=== PATIENT | male | born 1980 | race African-American/Black ===

== ENCOUNTER 2018-12-24 00:20 | Emergency (ER) | payer MEDICARE, MEDICAID ==
--- NOTE | 2018-12-24 00:40 | ED.PDOC ---
History of Present Illness - General Chief Complaint: Abdominal Pain Stated Complaint: abdominal pain Time Seen by Provider: 12/24/18 00:37 Information Source: patient Exam Limitations: no limitations - History of Present Illness Initial Comments: Te Burdick 38 y/o male came to ER with sharp left sided abdominal pain intermittent radiation to left flank for the last 4 days.Denies N/V/D,no dysuria,no hematuria,no constipation able to eat. Abdominal Pain Onset Location: other - left side abdomen Pain Radiation: other - see hpi Quality: moderate, intermittent, sharpness Timing/Duration: other - 4 days Improving Factors: nothing Worsening Factors: nothing Associated Symptoms: other - see hpi Review of Systems - Review of Systems Gastrointestinal/Abdominal: States: see HPI All other Systems: Reviewed and Negative, No Change from Baseline Past Medical History (General) - Patient Medical History Hx Seizures: No Hx Stroke: No Hx Dementia: No Hx Asthma: No Hx of COPD: No Hx Cardiac Disorders: No Hx Congestive Heart Failure: No Hx Pacemaker: No Hx Hypertension: Yes Hx Thyroid Disease: No Hx Diabetes: No Hx Gastroesophageal Reflux: No Hx Renal Disease: No Hx Cancer: No Hx of HIV: No Hx Hepatitis C: No Hx MRSA: No Surgical History: other - right arthroscopy knee - Vaccination History Hx Tetanus, Diphtheria Vaccination: No Hx Influenza Vaccination: No Hx Pneumococcal Vaccination: No - Social History Hx Tobacco Use: Yes Hx Chewing Tobacco Use: No Hx Alcohol Use: No Hx Substance Use: No Hx Substance Use Treatment: No Hx Depression: No Hx Physical Abuse: No Hx Emotional Abuse: No Hx Suspected Abuse: No - Female History Patient : No Family Medical History - Family History Mother Living Status: Still Living Hx Family Asthma: No Hx Family Congestive Heart Failure: No Hx Family Hypertension: Yes Hx Family Stroke: No Hx Cardiac Disease: No Hx Family Diabetes: No Hx Family Cancer: No Hx Family;Other: suicide disease (per Pt)- tumor in head Father Family History: Unknown Living Status: Unknown Physical Exam - Physical Exam General Appearance: Alert, Comfortable, No apparent distress Eyes, Ears, Nose, Throat Exam: normal ENT inspection, TMs normal Neck: full range of motion, supple, normal inspection Respiratory: chest non-tender, lungs clear, normal breath sounds Cardiovascular/Chest: normal peripheral pulses, regular rate, rhythm, no murmur Peripheral Pulses: No deficit Gastrointestinal/Abdominal: soft, no organomegaly, tenderness - left side abdomen no peritoneal signs Back Exam: no CVA tenderness, no vertebral tenderness Extremity: no pedal edema, no calf tenderness Neurologic: alert, oriented x 3 Skin Exam: normal color, warm/dry Progress - Progress Progress: 12/24/18 03:02 12/24/18 00:43 IV Care:Saline Lock per Protoc QSHIFT 12/24/18 01:43 Hold Metformin x 48Hrs [id number] Laboratory Results - last 24 hr 12/24/18 12/24/18 12/24/18 00:43 00:43 00:51 WBC 5.4 RBC 4.97 Hgb 15.6 Hct 45.9 MCV 92.3 MCH 31.3 H MCHC 33.9 RDW 14.3 Plt Count 263 MPV 8.7 Absolute Neuts (auto) 2.20 Absolute Lymphs (auto) 2.40 Absolute Monos (auto) 0.70 Absolute Eos (auto) 0.10 Absolute Basos (auto) 0.10 Neutrophils % 39.8 L Lymphocytes % 43.3 Monocytes % 13.6 H Eosinophils % 2.2 Basophils % 1.1 PT 10.5 INR 1.05 PTT (SP) 25.2 Sodium 135 Potassium 3.5 L Chloride 102 Carbon Dioxide 23 Anion Gap 13.5 BUN 10 Creatinine 1.00 BUN/Creatinine Ratio 10.0 Random Glucose 104 Serum Osmolality 269.4 L Calcium 9.0 Magnesium 1.9 Total Bilirubin 0.6 Direct Bilirubin < 0.1 Indirect Bilirubin 0.5 AST 43 H ALT 51 Alkaline Phosphatase 54 Creatine Kinase 339 H* CK-MB (CK-2) 2.5 CK-MB (CK-2) % Not Reportable Troponin I < 0.02 Serum Total Protein 7.9 Albumin 4.1 Urine Color Yellow Urine Appearance Clear Urine pH 7.0 Ur Specific [place] 1.020 Urine Protein Trace Urine Glucose (UA) Negative Urine Ketones Trace Urine Blood Trace-intact H Urine Nitrite Negative Urine Bilirubin Small H Urine Urobilinogen 0.2 Ur Leukocyte Esterase Negative Urine RBC 1-3 Urine WBC 0 Ur Epithelial Cells 0 Urine Bacteria 0 Urine Opiates Screen Negative Urine Barbiturates Negative Ur Phencyclidine Scrn Negative U Amphetamin/Meth Scrn Negative U Benzodiazepines Scrn Negative U Cocaine Metab Screen Negative U Cannabinoids Screen Negative - Results/Orders Results/Orders: 12/24/18 00:43 IV Care:Saline Lock per Protoc QSHIFT 12/24/18 01:43 Hold Metformin x 48Hrs [id number] Laboratory Results - last 24 hr 12/24/18 12/24/18 12/24/18 00:43 00:43 00:51 WBC 5.4 RBC 4.97 Hgb 15.6 Hct 45.9 MCV 92.3 MCH 31.3 H MCHC 33.9 RDW 14.3 Plt Count 263 MPV 8.7 Absolute Neuts (auto) 2.20 Absolute Lymphs (auto) 2.40 Absolute Monos (auto) 0.70 Absolute Eos (auto) 0.10 Absolute Basos (auto) 0.10 Neutrophils % 39.8 L Lymphocytes % 43.3 Monocytes % 13.6 H Eosinophils % 2.2 Basophils % 1.1 PT 10.5 INR 1.05 PTT (SP) 25.2 Sodium 135 Potassium 3.5 L Chloride 102 Carbon Dioxide 23 Anion Gap 13.5 BUN 10 Creatinine 1.00 BUN/Creatinine Ratio 10.0 Random Glucose 104 Serum Osmolality 269.4 L Calcium 9.0 Magnesium 1.9 Total Bilirubin 0.6 Direct Bilirubin < 0.1 Indirect Bilirubin 0.5 AST 43 H ALT 51 Alkaline Phosphatase 54 Creatine Kinase 339 H* CK-MB (CK-2) 2.5 CK-MB (CK-2) % Not Reportable Troponin I < 0.02 Serum Total Protein 7.9 Albumin 4.1 Urine Color Yellow Urine Appearance Clear Urine pH 7.0 Ur Specific [place] 1.020 Urine Protein Trace Urine Glucose (UA) Negative Urine Ketones Trace Urine Blood Trace-intact H Urine Nitrite Negative Urine Bilirubin Small H Urine Urobilinogen 0.2 Ur Leukocyte Esterase Negative Urine RBC 1-3 Urine WBC 0 Ur Epithelial Cells 0 Urine Bacteria 0 Urine Opiates Screen Negative Urine Barbiturates Negative Ur Phencyclidine Scrn Negative U Amphetamin/Meth Scrn Negative U Benzodiazepines Scrn Negative U Cocaine Metab Screen Negative U Cannabinoids Screen Negative - EKG/XRAY/CT CT Ordered: Yes - abd/p-no acute findings noted Departure - Departure Clinical Impression: Abdominal pain Qualifiers: Abdominal location: lower abdomen, unspecified Qualified Code(s): R10.30 - Lower abdominal pain, unspecified Time of Disposition: 03:04 Disposition: Discharge to Home or Self Care Condition: Good Departure Forms: ED Discharge - Pt. Copy, Patient Portal Self Enrollment Instructions: DI for Abdominal Pain-Adult Diet: other - Avoid spicy and greasy foods Referrals: LETTY ALARCON [Primary Care Provider] - 1-2 Weeks Home Medications: Ambulatory Orders NK 12/24/18 Additional Instructions: Follow up with primary Md 24 December 2018 for recheck
[2018-12-24] MEDS ORDERED: LACTATED RINGERS 1,000 ML IVS ONE (00:43)
[2018-12-24] MEDS ORDERED: KETOROLAC TROMETHAMINE INJ 30 MG/ML VIAL IV ONE (00:43)
--- NOTE | 2018-12-24 02:18 | CT ---
CLINICAL HISTORY: pain left side abdomen COMPARISON: None. TECHNIQUE: CT ABDOMEN PELVIS WITH IV CONTRAST on 12/24/2018 1:42 AM CDT This exam was performed according to our departmental dose-optimization program, which includes automated exposure control, adjustment of the mA and/or kV according to patient size and/or use of iterative reconstruction technique. FINDINGS: Lower lungs are clear. Abdomen: The liver is normal in appearance. There is no biliary dilatation. Gallbladder is normal in appearance. Cholecystectomy was performed. The pancreas and spleen are normal in appearance. The adrenal glands and kidneys are unremarkable. Abdominal aorta is normal in course and caliber without aneurysm. There is no free air. There is no retroperitoneal adenopathy. Pelvis: There is no bowel obstruction. Urinary bladder is unremarkable. There is no free fluid. Skeleton: There are no acute osseous findings. No suspicious bony lesions. IMPRESSION: No acute inflammatory process. No renal or ureteral calculi. Electronically signed by: Master Calderon MD 12/24/2018 2:16 AM CDT
[2018-12-24 03:21] VITALS: BP 159/121; TEMP 97.2; O2SAT 99
== END 2018-12-24 03:15 | disposition home or self-care (01) ==
LOC: ER 00:20
DX: R10.32 Left lower quadrant pain (principal); I10 Essential (primary) hypertension; Z87.891 Personal history of nicotine dependence
CPT/HCPCS: 74177; 80048; 80076; 80307; 81001; 82550; 82553; 84484; 85025; 85610; 85730; J1885; J7120

== ENCOUNTER 2019-10-25 23:40 | Emergency (ER) | payer MEDICARE, MEDICAID ==
[2019-10-26] VITALS: TEMP 97.5
--- NOTE | 2019-10-26 00:41 | ED.PDOC ---
History of Present Illness - General Chief Complaint: Behavioral / Psych Stated Complaint: short of breath, chest pain Time Seen by Provider: 10/26/19 00:35 Source: patient, RN notes reviewed, Vital Signs reviewed, family - Exam Limitations: no limitations - History of Present Illness Initial Comments: Patient is a 39-year-old -[place] male who presents with complaints of shortness of breath and chest pain. This started approximately 3 hours prior to arrival. Patient was sitting on his couch with his watching TV and had acute onset of chest pain. It was stabbing in nature as well as pressure-like. The chest pain came on first and then the associated shortness of breath. Patient denies any nausea, vomiting. Patient denies any diaphoresis. The pain is nonradiating pain. The pain is moderate in intensity. Pain is worse with deep inspiration or movement. Nothing seems to make it much better except for rubbing his chest. Timing/Duration: 1-3 hours Severity/Quality: moderate, pressure, stabbing, tightness Location: substernal, central Chest Pain Radiation: no radiation Activities at Onset: none Prior Chest Pain/Cardiac Workup: no prior chest pain Improving Factors: other - Rubbing his chest. Worsening Factors: other - Deep inspiration or movement. Nitro Today/Relief: no nitro taken today Aspirin Treatment Today: no aspirin today Associated Symptoms: shortness of breath Allergies/Adverse Reactions: Allergies NO KNOWN ALLERGY Allergy (Verified 06/07/16 23:10) Home Medications: Ambulatory Orders NK 12/24/18 Review of Systems - Review of Systems Constitutional: States: no symptoms reported, see HPI. Denies: fever, malaise EENTM: States: no symptoms reported Respiratory: States: see HPI, short of breath Cardiology: States: see HPI, chest pain. Denies: palpitations, syncope Gastrointestinal/Abdominal: States: no symptoms reported. Denies: abdominal pain, diarrhea, nausea Genitourinary: States: no symptoms reported Musculoskeletal: States: no symptoms reported. Denies: back pain, neck pain Skin: States: no symptoms reported. Denies: change in color, rash Neurological: States: no symptoms reported. Denies: numbness, paresthesia, tingling, weakness Endocrine: States: no symptoms reported Hematologic/Lymphatic: States: no symptoms reported All other Systems: Reviewed and Negative, No Change from Baseline Past Medical History (General) - Patient Medical History Hx Seizures: No Hx Stroke: No Hx Dementia: No Hx Asthma: No Hx of COPD: No Hx Cardiac Disorders: No Hx Congestive Heart Failure: No Hx Pacemaker: No Hx Hypertension: Yes Hx Thyroid Disease: No Hx Diabetes: No Hx Gastroesophageal Reflux: No Hx Renal Disease: No Hx Cancer: No Hx of HIV: No Hx Hepatitis C: No Hx MRSA: No Surgical History: appendectomy, other - Vaccination History Hx Tetanus, Diphtheria Vaccination: No Hx Influenza Vaccination: No Hx Pneumococcal Vaccination: No - Social History Hx Tobacco Use: Yes Hx Chewing Tobacco Use: No Hx Alcohol Use: No Hx Substance Use: No Hx Substance Use Treatment: No Hx Depression: No Hx Physical Abuse: No Hx Emotional Abuse: No Hx Suspected Abuse: No - Female History Patient : No Family Medical History - Family History Mother Living Status: Still Living Hx Family Asthma: No Hx Family Congestive Heart Failure: No Hx Family Hypertension: Yes Hx Family Stroke: No Hx Cardiac Disease: No Hx Family Diabetes: No Hx Family Cancer: No Hx Family;Other: suicide disease (per Pt)- tumor in head Father Family History: Unknown Living Status: Unknown Physical Exam - Physical Exam General Appearance: Alert, Anxious, Well Developed, Well Groomed, Well Hydrated, Well Nourished Eyes, Ears, Nose, Throat Exam: PERRL/EOMI, normal ENT inspection, pharynx normal Neck: non-tender, full range of motion, supple, normal inspection Respiratory: chest non-tender, lungs clear, normal breath sounds, no respiratory distress, no accessory muscle use Cardiovascular/Chest: normal peripheral pulses, regular rate, rhythm, no edema, no gallop, no murmur Peripheral Pulses: radial,right: 2+, radial,left: 2+ Gastrointestinal/Abdominal: normal bowel sounds, non tender, soft Extremity: normal range of motion, non-tender, normal inspection, no pedal edema 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 11/13/19 01:06 This is a late entry. Patient evaluated for chest pain. Negative troponin x2. Chest pain resolved after IV benzodiazepines. Plan on discharge home with follow-up with PCP for referral to a home health care social worker for a stress test. I discussed the plan of care with the patient he voices understanding and agreement with the plan of care. Jose Burns M.D. #[id number] - Results/Orders Results/Orders: EXAM DESCRIPTION: Chest,1 View CLINICAL HISTORY:39 years Male, chest pain Comparison: Chest radiograph dated June 07, 2016 FINDINGS: No focal lung consolidation. No pleural effusion. No pneumothorax. Cardiomediastinal silhouette is within normal limits. No acute osseous abnormality. IMPRESSION: No acute cardiopulmonary disease. Electronically signed by: Rodrigo Morocho DO 10/26/2019 1:07 AM Laboratory Tests 10/26/19 10/26/19 10/26/19 00:35 02:00 02:00 WBC 3.4 L RBC 4.43 L Hgb 13.7 L Hct 40.5 L MCV 91.5 MCH 31.0 MCHC 33.8 RDW 13.5 Plt Count 224 MPV 8.1 Absolute Neuts (auto) 1.20 L Absolute Lymphs (auto) 1.50 Absolute Monos (auto) 0.50 Absolute Eos (auto) 0.10 Absolute Basos (auto) 0.10 Neutrophils % 34.7 L Lymphocytes % 45.2 Monocytes % 14.1 H Eosinophils % 4.2 Basophils % 1.8 PT 9.9 INR 1.00 PTT (SP) 23.2 D-Dimer, Quantitative 310 Sodium 139 Potassium 3.2 L Chloride 107 Carbon Dioxide 22 Anion Gap 13.2 BUN 10 Creatinine 1.03 BUN/Creatinine Ratio 9.7 L Random Glucose 117 H Serum Osmolality 277.6 Calcium 8.9 Magnesium 1.6 L Creatine Kinase 520 H* CK-MB (CK-2) 2.7 CK-MB (CK-2) % Not Reportable Troponin I < 0.02 < 0.02 B-Natriuretic Peptide 11.0 Please see medical record for EKG Departure - Departure Clinical Impression: Anxiety attack Chest pain Qualifiers: Chest pain type: unspecified Qualified Code(s): R07.9 - Chest pain, unspecified Disposition: Discharge to Home or Self Care Condition: Good Departure Forms: ED Discharge - Pt. Copy, Patient Portal Self Enrollment Instructions: DI for Chest Pain, DI for Psychosis Diet: resume usual diet Activity: walking as tolerated Referrals: LETTY ALARCON [Primary Care Provider] - 1-2 Days Home Medications: Ambulatory Orders NK 12/24/18
[2019-10-26] MEDS: ASPIRIN TABLET 325 MG TAB PO ONE (00:45)
[2019-10-26] MEDS: ONDANSETRON INJ 4 MG/2 ML VIAL IV ONE (01:00)
[2019-10-26] MEDS: SODIUM CHLORIDE 0.9% (FLUSH) 10 ML SYG IV PRN (01:01)
--- NOTE | 2019-10-26 01:09 | RAD ---
EXAM DESCRIPTION: Chest,1 View CLINICAL HISTORY:39 years Male, chest pain Comparison: Chest radiograph dated June 07, 2016 FINDINGS: No focal lung consolidation. No pleural effusion. No pneumothorax. Cardiomediastinal silhouette is within normal limits. No acute osseous abnormality. IMPRESSION: No acute cardiopulmonary disease. Electronically signed by: Rodrigo Morocho DO 10/26/2019 1:07 AM CDT
[2019-10-26] MEDS ORDERED: METOPROLOL TARTRATE INJ 5 MG/5 ML VIAL IV ONE (02:17)
[2019-10-26 05:20] VITALS: BP 149/106; O2SAT 95
== END 2019-10-26 02:58 | disposition home or self-care (01) ==
LOC: ER 23:40
DX: F41.0 Panic disorder [episodic paroxysmal anxiety] (principal); R07.9 Chest pain, unspecified; R06.02 Shortness of breath; I10 Essential (primary) hypertension; Z87.891 Personal history of nicotine dependence
CPT/HCPCS: 71045; 80048; 82550; 82553; 83880; 84484; 85025; 85379; 85610; 85730; 93005; J2405

== ENCOUNTER 2020-07-30 00:38 | Emergency (ER) | payer MEDICARE, MEDICAID ==
--- NOTE | 2020-07-30 00:58 | ED.PDOC ---
History of Present Illness - General Chief Complaint: Abdominal Pain Stated Complaint: abd pain Time Seen by Provider: 07/30/20 00:57 - History of Present Illness Initial Comments: Patient complains of epigastric pain for the last 3 days. The pain is intermittently sharp and dull and radiates through to the back. Current pain level 8/10. Patient complains of nausea without vomiting. He has had 4 black diarrheal stools in the last 24 hours. He has been taking Pepto-Bismol. Patient has had similar pains for months. He was recently hospitalized 3 weeks ago at [facility] in [place] with a diagnosis of pancreatitis. Patient is a daily drinker with last alcohol intake within the last 24 hours. Allergies/Adverse Reactions: Allergies NO KNOWN ALLERGY Allergy (Verified 06/07/16 23:10) Home Medications: Ambulatory Orders Famotidine [Pepcid] 20 mg PO BID 15 Days #30 tab 07/30/20 Ondansetron Odt [Zofran ODT] 4 mg PO Q6H PRN 3 Days #12 tab 07/30/20 Sucralfate Tab [Carafate Tab] 1 gm PO ACHS 7 Days #30 tablet 07/30/20 Review of Systems - Review of Systems Constitutional: States: no symptoms reported EENTM: States: no symptoms reported Respiratory: States: no symptoms reported Gastrointestinal/Abdominal: States: see HPI Genitourinary: States: no symptoms reported Musculoskeletal: States: no symptoms reported Skin: States: no symptoms reported Neurological: States: no symptoms reported Endocrine: States: no symptoms reported Hematologic/Lymphatic: States: no symptoms reported Past Medical History (General) - Patient Medical History Hx Seizures: No Hx Stroke: No Hx Dementia: No Hx Asthma: No Hx of COPD: No Hx Cardiac Disorders: No Hx Congestive Heart Failure: No Hx Pacemaker: No Hx Hypertension: Yes Hx Thyroid Disease: No Hx Diabetes: No Hx Gastroesophageal Reflux: No Hx Renal Disease: No Hx Cancer: No Hx of HIV: No Hx Hepatitis C: No Hx MRSA: No Hx Other - free text: Pancreatitis - Vaccination History Hx Tetanus, Diphtheria Vaccination: No Hx Influenza Vaccination: No Hx Pneumococcal Vaccination: No - Social History Hx Tobacco Use: Yes Hx Chewing Tobacco Use: No Hx Alcohol Use: No Hx Substance Use: No Hx Substance Use Treatment: No Hx Depression: No Hx Physical Abuse: No Hx Emotional Abuse: No Hx Suspected Abuse: No - Female History Patient : No Family Medical History - Family History Mother Living Status: Still Living Hx Family Asthma: No Hx Family Congestive Heart Failure: No Hx Family Hypertension: Yes Hx Family Stroke: No Hx Cardiac Disease: No Hx Family Diabetes: No Hx Family Cancer: No Hx Family;Other: suicide disease (per Pt)- tumor in head Father Family History: Unknown Living Status: Unknown Physical Exam - Physical Exam General Appearance: Alert, Comfortable Eye Exam: bilateral normal Ears, Nose, Throat: normal ENT inspection, normal pharynx, other - Moist mucous membranes Neck: non-tender, full range of motion Respiratory: normal breath sounds Cardiovascular/Chest: normal peripheral pulses, regular rate, rhythm Gastrointestinal/Abdominal: normal bowel sounds, soft, no organomegaly, tenderness - , Normal bowel sounds Rectal Exam: normal exam, normal rectal tone, black stool, other - Nurse Rhonda as it consultant present Back Exam: normal inspection, no CVA tenderness Extremity: normal range of motion 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 07/30/20 02:43 Medical decision makin-year-old male with history of alcohol abuse and pancreatitis who continues to drink alcohol and complains of epigastric pain. Exam and laboratory work is not suggestive of pancreatitis. Laboratory work is unremarkable and stool is heme positive. Findings are suggestive of gastritis and peptic ulcer disease. Patient is advised to discontinue alcohol intake and follow-up with his doctor for gastroenterology referral or further treatment as indicated. - Results/Orders Results/Orders: 07/30/20 01:09 Sodium Chloride 0.9% 1000ML [Ns 1000 ml] 1,000 ml IVS ONCE 07/30/20 01:10 FECAL OCCULT BLOOD Stat Laboratory Results - last 24 hr 07/30/20 07/30/20 01:20 01:20 WBC 5.4 RBC 4.69 L Hgb 14.4 Hct 42.3 MCV 90.3 MCH 30.7 MCHC 34.0 RDW 13.2 Plt Count 348 MPV 8.4 Absolute Neuts (auto) 2.50 Absolute Lymphs (auto) 2.00 Absolute Monos (auto) 0.70 Absolute Eos (auto) 0.20 Absolute Basos (auto) 0.10 Neutrophils % 46.6 Lymphocytes % 37.1 Monocytes % 12.2 H Eosinophils % 3.0 Basophils % 1.1 Sodium 140 Potassium 3.7 Chloride 104 Carbon Dioxide 21 Anion Gap 18.7 H BUN 11 Creatinine 1.08 BUN/Creatinine Ratio 10.2 Random Glucose 126 H Serum Osmolality 280.3 Calcium 9.0 Total Bilirubin 0.6 AST 33 ALT 27 Alkaline Phosphatase 64 Serum Total Protein 8.0 Albumin 4.2 Globulin 3.8 H Albumin/Globulin Ratio 1.1 Lipase 23 Vital Signs - 24 hr 07/30/20 00:54 Temperature 97.1 F L Pulse Rate [ 73 Left Radial] Respiratory 18 Rate Blood Pressure 138/90 [Left Arm] O2 Sat by Pulse 97 Oximetry Stool for occult blood positive Departure - Departure Clinical Impression: Abdominal pain, Alcoholic gastritis, Peptic ulcer disease, Melena Time of Disposition: 02:09 Disposition: Discharge to Home or Self Care Condition: Good Departure Forms: ED Discharge - Pt. Copy, Patient Portal Self Enrollment Instructions: DI for Abdominal Pain-Adult, Gastritis (DC), Peptic Ulcers (DC) Diet: bland diet, other - Do not drink alcohol. Avoid spicy, acidic, Salty foods. Referrals: LETTY ALARCON [Primary Care Provider] - 1-2 Weeks Prescriptions: Sucralfate Tab [Carafate Tab] 1 gm PO ACHS 7 Days #30 tablet Famotidine [Pepcid] 20 mg PO BID 15 Days #30 tab Ondansetron Odt [Zofran ODT] 4 mg PO Q6H PRN 3 Days #12 tab PRN Reason: Vomiting Home Medications: Ambulatory Orders Famotidine [Pepcid] 20 mg PO BID 15 Days #30 tab 07/30/20 Ondansetron Odt [Zofran ODT] 4 mg PO Q6H PRN 3 Days #12 tab 07/30/20 Sucralfate Tab [Carafate Tab] 1 gm PO ACHS 7 Days #30 tablet 07/30/20 Additional Instructions: See your doctor as soon as possible for further care of your gastritis and ulcer disease or referral to a human capital analyst. Return if you have Persistent andacutely worsening Symptoms.
[2020-07-30] MEDS ORDERED: ONDANSETRON INJ 4 MG/2 ML VIAL IV ONE (01:09)
[2020-07-30] MEDS ORDERED: FAMOTIDINE IV PREMIX 20 MG in PREMIX BAG 1 BAG IVPB ONE (01:09)
[2020-07-30] MEDS ORDERED: SODIUM CHLORIDE 0.9% 1000ML 1,000 ML IVS ONE (01:09)
[2020-07-30] MEDS ORDERED: ACETAMINOPHEN IV 1000MG 1,000 MG in PREMIX BOTTLE 1 BOTTLE IVPB ONE (01:10)
[2020-07-30 02:53] VITALS: O2SAT 98
[2020-07-30 02:55] VITALS: BP 128/86; TEMP 97.4
== END 2020-07-30 02:45 | disposition home or self-care (01) ==
LOC: ER 00:38
DX: K29.20 Alcoholic gastritis without bleeding (principal); K92.1 Melena; K27.9 Peptic ulcer, site unspecified, unspecified as acute or chronic, without hemorrhage or perforation; I10 Essential (primary) hypertension; Z87.891 Personal history of nicotine dependence
CPT/HCPCS: 80053; 82270; 83690; 85025; J2405; J3490; J7030

== ENCOUNTER 2020-08-12 10:50 | Emergency (ER) | payer MEDICARE, MEDICAID ==
[2020-08-12] MEDS ORDERED: PANTOPRAZOLE SODIUM IV 40 MG VIAL IV ONE (11:13)
[2020-08-12] MEDS ORDERED: SODIUM CHLORIDE 0.9% 1000ML 1,000 ML IVS ONE ×3 (11:13→14:30)
[2020-08-12] MEDS ORDERED: PROMETHAZINE HCL INJ 25 MG in SODIUM CHLORIDE 0.9% 50ML 50 ML IVPB ONE (11:13)
[2020-08-12] MEDS ORDERED: ALUM & MAG HYDROX-SIMETHICONE 30 ML, LIDOCAINE VISCOUS 2% 15 ML PO ONE ×2 (11:14)
[2020-08-12] MEDS ORDERED: SUCRALFATE 1 GM/10 ML 1 GM UD PO ONE (11:55)
--- NOTE | 2020-08-12 12:58 | CT ---
EXAM DESCRIPTION: Abdoment/Pelvis w/o Contrast: Computed Tomography. CLINICAL HISTORY: 39 years Male nausea and vomiting. COMPARISON: None. TECHNIQUE: Spiral-axial scans 2.5 x 2.5 mm intervals through the abdomen and pelvis without oral or IV contrast. Coronal and sagittal 2.0 mm reconstructions. Total Exam DLP: 912 mGy-cm. This exam was performed according to our departmental CT dose-optimization program which includes automated exposure control, adjustment of the mA and/or kV according to patient size and/or use of iterative reconstruction technique; to reduce radiation dose to as low as reasonably achievable (ALARA). FINDINGS: Lung bases and pleura: Negative. Liver, stomach, spleen, and adrenal glands: Fatty density of the liver. Otherwise unremarkable. Pancreas, Gallbladder, and Ducts: Minimal fatty stranding around the head and body of the pancreas. The organ is not enlarged with no calcifications. Kidneys and Ureters: Unremarkable. Mesentery: Please see above. No free air or free fluid. Aorta: Negative. Small Bowel: Radiodense material proximal small bowel but no oral contrast. No distended segments are significant air-fluid levels. Terminal Ileum/Cecum: Normal caliber of the terminal ileum with mildly distended cecum with fecal material and radiodense feces. Surgical clips abutting the inferior cecum. Appendix not seen. Colon: Single diverticulum containing calcification or radiodense fecal matter in the mid descending colon. Moderate redundancy of the sigmoid colon with anterior segment abutting the posterior left abdominal wall and distended by gas. Moderate distention of the rectum by fecal matter. Pelvic Organs: Prostate gland impressing on the base of the urinary bladder and the seminal vesicles. 3.7 x 3.7 cm greatest transverse plane. Spine and Bony Pelvis: Minimal narrowing of the L5-S1 disc space with trace retrolisthesis and disc bulging. Abdominal Wall/Back Soft Tissues: Negative. IMPRESSION: 1. Minimal mesenteric stranding around the head and body of the pancreas suggesting pancreatitis. No mass or fluid collection. Steatosis of the liver with normal size. 2. Mild diverticulosis distal colon and moderate redundancy of the sigmoid colon with constipation but no complications. Electronically signed by: Slim Graves MD 08/12/2020 12:56 PM [employer]
[2020-08-12] MEDS ORDERED: MAGNESIUM HYDROXIDE 30 ML UD PO ONE (13:52)
--- NOTE | 2020-08-12 14:35 | ED.PDOC ---
History of Present Illness - General Chief Complaint: Abdominal Pain Stated Complaint: Abdominal pain, N/D Time Seen by Provider: 08/12/20 11:12 Source: patient Exam Limitations: no limitations - History of Present Illness Initial Comments: The patient is a 39-year-old male presented emergency room secondary to nausea vomiting for the last 24 hours. He has had a history of chronic gastritis as well as some recurrent pancreatitis in the past. He does have significant alcohol use issue. No blood in the vomitus. No blood in the stool. He does have severe epigastric pain. No fever. No trauma. Timing/Duration: 24 hours Severity: severe Improving Factors: nothing Worsening Factors: eating Associated Symptoms: loss of appetite, nausea/vomiting Allergies/Adverse Reactions: Allergies NO KNOWN ALLERGY Allergy (Verified 08/12/20 12:08) Home Medications: Ambulatory Orders Famotidine [Pepcid] 20 mg PO BID 15 Days #30 tab 07/30/20 Ondansetron Odt [Zofran ODT] 4 mg PO Q6H PRN 3 Days #12 tab 07/30/20 Sucralfate Tab [Carafate Tab] 1 gm PO ACHS 7 Days #30 tablet 07/30/20 Famotidine 20 mg PO DAILY #30 tab 08/12/20 Ondansetron Odt [Zofran ODT] 4 mg PO Q8HR PRN #5 tab 08/12/20 Sucralfate Tab [Carafate Tab] 1 gm PO QID #120 tab 08/12/20 Review of Systems - Review of Systems Constitutional: States: malaise EENTM: States: no symptoms reported Respiratory: States: no symptoms reported Cardiology: States: no symptoms reported Gastrointestinal/Abdominal: States: abdominal pain, nausea, vomiting Genitourinary: States: no symptoms reported Musculoskeletal: States: no symptoms reported Skin: States: no symptoms reported Neurological: States: no symptoms reported Endocrine: States: no symptoms reported All other Systems: No Change from Baseline Past Medical History (General) - Patient Medical History Hx Seizures: No Hx Stroke: No Hx Dementia: No Hx Asthma: No Hx of COPD: No Hx Cardiac Disorders: No Hx Congestive Heart Failure: No Hx Pacemaker: No Hx Hypertension: Yes Hx Thyroid Disease: No Hx Diabetes: No Hx Gastroesophageal Reflux: No Hx Renal Disease: No Hx Cancer: No Hx of HIV: No Hx Hepatitis C: No Hx MRSA: No Surgical History: appendectomy, tonsillectomy - Vaccination History Hx Tetanus, Diphtheria Vaccination: No Hx Influenza Vaccination: No Hx Pneumococcal Vaccination: No - Social History Hx Tobacco Use: No Hx Chewing Tobacco Use: No Hx Alcohol Use: Yes Hx Substance Use: No Hx Substance Use Treatment: No Hx Depression: No Hx Physical Abuse: No Hx Emotional Abuse: No Hx Suspected Abuse: No - Female History Patient is a Female of Child Bearing Age (10 -59 yrs old): No Patient : No Family Medical History - Family History Mother Living Status: Still Living Hx Family Asthma: No Hx Family Congestive Heart Failure: No Hx Family Hypertension: Yes Hx Family Stroke: No Hx Cardiac Disease: No Hx Family Diabetes: No Hx Family Cancer: No Hx Family;Other: suicide disease (per Pt)- tumor in head Father Family History: Unknown Living Status: Unknown Physical Exam - Physical Exam General Appearance: Alert, Other - Obviously uncomfortable Eye Exam: bilateral normal Ears, Nose, Throat: hearing grossly normal, normal pharynx Neck: full range of motion, supple Respiratory: lungs clear, normal breath sounds, no respiratory distress, no accessory muscle use Cardiovascular/Chest: normal peripheral pulses, regular rate, rhythm, no edema Peripheral Pulses: radial,right: 2+, radial,left: 2+ Gastrointestinal/Abdominal: other - Epigastric tenderness to palpation. Rectal Exam: deferred Back Exam: no CVA tenderness, no vertebral tenderness Extremity: normal range of motion, non-tender, normal inspection, no pedal edema, normal capillary refill Neurologic: castings drafter II-XII nml as tested, alert, normal mood/affect, oriented x 3 Skin Exam: normal color Comments: Vital Signs - 24 hr 08/12/20 08/12/20 10:50 10:51 Temperature 97.8 F Pulse Rate [ 102 H 102 H Pulse ox] Respiratory 20 20 Rate Blood Pressure 136/99 [R arm] O2 Sat by Pulse 96 Oximetry Progress - Progress Progress: 08/12/20 14:35 The patient is a 39-year-old male presented emergency room with what appears to be acute alcoholic gastritis. He obviously needs to avoid the alcohol. He will be written for Carafate and famotidine for the next month. He also be written for Zofran for as needed use to control any nausea or vomiting. He needs to maintain a bland diet and keep himself well-hydrated. CT scan of the abdomen pelvis was fairly reassuring. Laboratory work showed no evidence of increased amylase or lipase. CT scan of the abdomen pelvis does not definitively show pancreatitis though it cannot definitely be ruled out. ER warnings are given. Follow-up with primary care doctor next week. marcy arenas - Results/Orders Results/Orders: CT scan abdomen pelvis shows constipation. No evidence of perforation. There is mild stranding around the head of the pancreas that could be consistent with an early pancreatitis. Chronic changes otherwise. EKG shows normal sinus rhythm at 88 bpm. Normal axis. Normal R wave progression. Mild left atrial dilation. No ST segment or T wave changes indicative of acute ischemia. Normal QT interval. Laboratory Tests 08/12/20 08/12/20 08/12/20 11:15 11:15 11:15 WBC 5.3 RBC 4.85 Hgb 14.9 Hct 43.3 MCV 89.4 MCH 30.7 MCHC 34.4 RDW 13.5 Plt Count 197 MPV 8.1 Absolute Neuts (auto) 2.70 Absolute Lymphs (auto) 1.90 Absolute Monos (auto) 0.60 Absolute Eos (auto) 0.00 Absolute Basos (auto) 0.00 Neutrophils % 51.3 Lymphocytes % 36.8 Monocytes % 10.7 H Eosinophils % 0.6 L Basophils % 0.6 PT 11.1 H INR 1.12 PTT (SP) 25.0 Sodium 141 Potassium 3.6 Chloride 103 Carbon Dioxide 24 Anion Gap 17.6 BUN 10 Creatinine 0.95 BUN/Creatinine Ratio 10.5 Random Glucose 115 H Serum Osmolality 281.2 Lactic Acid Calcium 8.6 Magnesium 1.9 Total Bilirubin 0.7 AST 49 H ALT 33 Alkaline Phosphatase 68 LD Total 185 H Creatine Kinase 542 H* CK-MB (CK-2) 2.7 CK-MB (CK-2) % Not Reportable Troponin I < 0.02 B-Natriuretic Peptide < 15.0 Serum Total Protein 8.4 H Albumin 4.6 Globulin 3.8 H Albumin/Globulin Ratio 1.2 Amylase 89 Lipase 36 Urine Color Urine Appearance Urine pH Ur Specific [place] Urine Protein Urine Glucose (UA) Urine Ketones Urine Blood Urine Nitrite Urine Bilirubin Urine Urobilinogen Ur Leukocyte Esterase Urine RBC Urine WBC Ur Epithelial Cells Urine Bacteria Urine Mucus Urine Opiates Screen Urine Barbiturates Ur Phencyclidine Scrn U Amphetamin/Meth Scrn U Benzodiazepines Scrn U Cocaine Metab Screen U Cannabinoids Screen 08/12/20 08/12/20 08/12/20 11:15 13:37 13:37 WBC RBC Hgb Hct MCV MCH MCHC RDW Plt Count MPV Absolute Neuts (auto) Absolute Lymphs (auto) Absolute Monos (auto) Absolute Eos (auto) Absolute Basos (auto) Neutrophils % Lymphocytes % Monocytes % Eosinophils % Basophils % PT INR PTT (SP) Sodium Potassium Chloride Carbon Dioxide Anion Gap BUN Creatinine BUN/Creatinine Ratio Random Glucose Serum Osmolality Lactic Acid 3.5 H* Calcium Magnesium Total Bilirubin AST ALT Alkaline Phosphatase LD Total Creatine Kinase CK-MB (CK-2) CK-MB (CK-2) % Troponin I B-Natriuretic Peptide Serum Total Protein Albumin Globulin Albumin/Globulin Ratio Amylase Lipase Urine Color Yellow Urine Appearance Clear Urine pH 7.0 Ur Specific [place] 1.025 Urine Protein 30 Urine Glucose (UA) Negative Urine Ketones Negative Urine Blood Negative Urine Nitrite Negative Urine Bilirubin Negative Urine Urobilinogen 1.0 Ur Leukocyte Esterase Negative Urine RBC 0 Urine WBC 0 Ur Epithelial Cells 0 Urine Bacteria 0 Urine Mucus Large Urine Opiates Screen Negative Urine Barbiturates Negative Ur Phencyclidine Scrn Negative U Amphetamin/Meth Scrn Negative U Benzodiazepines Scrn Negative U Cocaine Metab Screen Negative U Cannabinoids Screen Negative Departure - Departure Clinical Impression: Acute gastritis Qualifiers: Gastritis type: alcoholic Gastritis bleeding: without bleeding Qualified Code(s): K29.20 - Alcoholic gastritis without bleeding Disposition: Discharge to Home or Self Care Condition: Fair Departure Forms: ED Discharge - Pt. Copy, Patient Portal Self Enrollment Instructions: DI for Abdominal Pain-Adult, Gastritis ED Diet: bland diet Activity: increase activity as tolerated Referrals: LETTY ALARCON [Primary Care Provider] - 1-2 Weeks Prescriptions: Ondansetron Odt [Zofran ODT] 4 mg PO Q8HR PRN #5 tab PRN Reason: Nausea--Moderate Sucralfate Tab [Carafate Tab] 1 gm PO QID #120 tab Famotidine 20 mg PO DAILY #30 tab Home Medications: Ambulatory Orders Famotidine [Pepcid] 20 mg PO BID 15 Days #30 tab 07/30/20 Ondansetron Odt [Zofran ODT] 4 mg PO Q6H PRN 3 Days #12 tab 07/30/20 Sucralfate Tab [Carafate Tab] 1 gm PO ACHS 7 Days #30 tablet 07/30/20 Famotidine 20 mg PO DAILY #30 tab 08/12/20 Ondansetron Odt [Zofran ODT] 4 mg PO Q8HR PRN #5 tab 08/12/20 Sucralfate Tab [Carafate Tab] 1 gm PO QID #120 tab 08/12/20 Additional Instructions: The patient is a 39-year-old male presented emergency room with what appears to be acute alcoholic gastritis. He obviously needs to avoid the alcohol. He will be written for Carafate and famotidine for the next month. He also be written for Zofran for as needed use to control any nausea or vomiting. He needs to maintain a bland diet and keep himself well-hydrated. CT scan of the abdomen pelvis was fairly reassuring. Laboratory work showed no evidence of increased amylase or lipase. CT scan of the abdomen pelvis does not definitively show pancreatitis though it cannot definitely be ruled out. ER warnings are given. Follow-up with primary care doctor next week.
[2020-08-12 15:11] VITALS: BP 142/104; TEMP 98.8; O2SAT 97
== END 2020-08-12 15:11 | disposition home or self-care (01) ==
LOC: ER 10:50
DX: K29.20 Alcoholic gastritis without bleeding (principal); I10 Essential (primary) hypertension; Z90.49 Acquired absence of other specified parts of digestive tract; Z20.822 Contact with and (suspected) exposure to COVID-19
CPT/HCPCS: 36415; 74176; 80053; 80307; 81001; 82150; 82550; 82553; 83605; 83615; 83690; 83735; 83880; 84484; 85025; 85610; 85730; 87502; 87635; 93005; A4216; J2550; J7030